=== PATIENT | male | born 1945 | race Caucasian/White ===

== ENCOUNTER 2021-01-24 15:12 | Emergency (ER) | payer MEDICARE, OTHER ==
[~2021-01-24] VITALS: Ht 180.3 cm; Wt 62.1 kg
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
--- NOTE | 2021-01-24 15:53 | NUR ---
[employer] AT BEDSIDE.
[2021-01-24] MEDS ORDERED: IBUPROFEN 600 MG TABLET ONE (16:38)
[2021-01-24] MEDS ORDERED: IBUPROFEN 600 MG TABLET PO ONE (17:00)
[2021-01-24] MEDS ORDERED: NAPR500T6 PO (17:05)
--- NOTE | 2021-01-24 17:21 | NUR ---
Patient discharged to home in stable condition. Written and verbal after care instructions given. Patient verbalizes understanding of instruction.
--- NOTE | 2021-01-24 19:50 | NUR ---
PT BROUGHT TO ER BED 13 VIA WHEELCHAIR IN STABLE CONDITION. PLACED ON MONITOR AND IN HOSPITAL GOWN. WILL CONTINUE TO MONITOR
[2021-01-24] MEDS ORDERED: IV NS 0.9% 1,000 ML BAG IV ONE (20:00)
[2021-01-24] MEDS ORDERED: HYDROMORPHONE INJ 2 MG/ML DISP.SYRIN IV ONE (20:00)
[2021-01-24] MEDS ORDERED: HYDROMORPHONE 1 MG/1 ML DISP.SYRIN ONE (20:14)
--- NOTE | 2021-01-24 20:19 | NUR ---
PT BROUGHT BY RADIOLOGY TO CT
[2021-01-24 20:28] LABS: BASOPHILS % (AUTO) 0.2 % (0.0-2.0); HEMATOCRIT 36 % (39-51); LYMPHOCYTES # (AUTO) 0.7 /CMM (0.8-4.8); LYMPHOCYTES % (AUTO) 3.6 % (20.0-44.0); MEAN CORPUSCULAR HGB CONC 33 g/dl (31.0-36.0); MEAN CORPUSCULAR VOLUME 102 fL (80-96); MONOCYTES % (AUTO) 5.5 % (2.0-12.0); NEUTROPHILS # (AUTO) 17.1 /CMM (1.8-8.9); NEUTROPHILS % (AUTO) 90.7 % (43.0-81.0); PLATELET COUNT (AUTO) 183 /CMM (150-450); RED BLOOD CELL COUNT(AUTO) 3.56 MIL/uL (4.5-6.0); WHITE BLOOD COUNT (AUTO) 18.8 K/uL (4.3-11.0)
[2021-01-24 20:38] LABS: CALCIUM, SERUM 8.5 mg/dL (8.5-10.1); CARBON DIOXIDE 24 mmol/L (21-32); CHLORIDE 105 mmol/L (98-107); CREATININE 1.8 mg/dL (0.6-1.3); GLUCOSE 249 mg/dL (74-106); POTASSIUM 4.1 mmol/L (3.5-5.1); SODIUM SERUM 141 mmol/L (136-145); UREA NITROGEN, BLOOD 23 mg/dL (7-18)
--- NOTE | 2021-01-24 20:45 | NUR ---
DR. DYSON SPEAKING WITH [facility] NP REGARDING ADMISSION
[2021-01-24 20:47] LABS: ALANINE AMINOTRANSFERASE 18 U/L (12-78); ALBUMIN 3.2 g/dL (3.4-5.0); ALKALINE PHOSPHATASE 38 U/L (46-116); ASPARTATE AMINOTRANSFERASE 18 U/L (15-37); BILIRUBIN,DIRECT 0.2 mg/dL (0.0-0.2); BILIRUBIN,TOTAL 0.9 mg/dL (0.2-1.0); LIPASE 110 U/L (73-393); TOTAL PROTEIN, SERUM 6.4 g/dL (6.4-8.2)
--- NOTE | 2021-01-24 20:48 | NUR ---
PT ACCEPTED BY HOSPITALIST [facility] NP. CALLED NURSING SUP FOR BED
--- NOTE | 2021-01-24 21:10 | NUR ---
PT'S BP 99/54, PER VERBAL MD ORDER WILL ADMIN 1L NS BOLUS X1 NOW PRIOR TO 0.5MG DILAUDID IV ADMIN
[2021-01-24] MEDS ORDERED: IV NS 0.9% 1,000 ML IV ONE (21:30)
--- NOTE | 2021-01-24 22:20 | NUR ---
H[facility]PITALIST [facility] NP SPEAKING WITH ER MD DR. SCHAEFFER. PER FAITH CLEMENTE UNABLE TO ACCEPT ADMISSION D/T PT NEEDING HIGHER LEVEL OF CARE TRANSPORT WITH TRAUMA SERVICES. BRANCH BANKER MADE AWARE.
--- NOTE | 2021-01-24 22:41 | NUR ---
REPORT GIVEN TO IRINEO ADAMS FOR TRE
--- NOTE | 2021-01-25 00:05 | NUR ---
REINFORCING STEEL MACHINE OPERATOR AT BEDSIDE FOR BLOOD DRAW
[2021-01-25 00:32] LABS: HEMATOCRIT 29 % (39-51); HEMOGLOBIN 9.9 g/dL (13.5-17.5); LYMPHOCYTES # (AUTO) 0.3 /CMM (0.8-4.8); LYMPHOCYTES % (AUTO) 1.9 % (20.0-44.0); MEAN CORPUSCULAR HGB CONC 34 g/dl (31.0-36.0); MEAN CORPUSCULAR VOLUME 101 fL (80-96); MONOCYTES # (AUTO) 0.8 /CMM (0.1-1.30); MONOCYTES % (AUTO) 6.2 % (2.0-12.0); NEUTROPHILS # (AUTO) 12.5 /CMM (1.8-8.9); NEUTROPHILS % (AUTO) 91.9 % (43.0-81.0); PLATELET COUNT (AUTO) 114 /CMM (150-450); WHITE BLOOD COUNT (AUTO) 13.6 K/uL (4.3-11.0)
--- NOTE | 2021-01-25 00:44 | NUR ---
SPOKE WITH LALO FROM [facility] FOR HIGHER LEVEL OF CARE TRANSPORT, PER LALO [facility] AT FULL CAPACITY AT THIS TIME
--- NOTE | 2021-01-25 00:50 | NUR ---
SPOKE WITH MELYSSA FROM [facility]. PER MELYSSA, AT CAPACITY AT THIS TIME BUT WILL FAX CLINICAL INFORMATION PER REQUEST
--- NOTE | 2021-01-25 01:15 | NUR ---
SPOKE WITH IRINA FROM [facility] FOR HIGHER LEVEL OF CARE TRANSFER. WILL FAX CLINICAL INFORMATION AT THIS TIME
--- NOTE | 2021-01-25 01:22 | NUR ---
ATTEMPTED TO CALL [facility] REGARDING POSSIBLE HIGHER LEVEL OF CARE TRANSFER, PENDING CALL BACK FROM CHARGE NURSE
--- NOTE | 2021-01-25 01:46 | NUR ---
SPOKE WITH JASON FROM [facility]. WILL FAX CLINICAL INFORMATION AT THIS TIME
--- NOTE | 2021-01-25 02:12 | NUR ---
DR. SCHAEFFER SPEAKING WITH [facility] , DR. MARTINEZ
--- NOTE | 2021-01-25 02:30 | NUR ---
PT ACCEPTED TO [facility] FOR HIGHER LEVEL OF CARE ACCEPTING MD: DR. ABBASI NUMBER FOR REPORT: [phone]
--- NOTE | 2021-01-25 02:32 | NUR ---
SPOKE WITH KENDRICK FROM [facility], PER KENDRICK NO ALS AMBULANCE AVAILABLE AT THIS TIME
--- NOTE | 2021-01-25 02:35 | NUR ---
SPOKE WITH DEVIN FROM [facility], NO ALS TRANSPORT AVAILABLE AT THIS TIME
--- NOTE | 2021-01-25 02:40 | NUR ---
SPOKE WITH CLAUDIA FROM [facility], NO AVAILABLE ALS TRANSPORT AT THIS TIME
--- NOTE | 2021-01-25 02:44 | NUR ---
CALLED [facility] FOR ALS TRANSPORT, UNAVAILABLE UNTIL AFTER 0700 AND WILL ALSO NEED HARD COPY OF AUTH FROM [employer]
--- NOTE | 2021-01-25 02:47 | NUR ---
SPOKE WITH WESLEY FROM [facility], NO ALS AMBULANCE AVAILABLE AT THIS TIME
--- NOTE | 2021-01-25 02:47 | NUR ---
SPOKE WITH JACKSON FROM [facility], NO AVAILABLE AMBULANCE AVAILABLE UNTIL AFTER [id number]
--- NOTE | 2021-01-25 02:48 | NUR ---
Quintin garcia in ED - 01/25/21 at 0248 by WAYLON SPOKE WITH JACKSON FROM [facility], NO AVAILABLE AMBULANCE AVAILABLE UNTIL AFTER [id number]
--- NOTE | 2021-01-25 02:49 | NUR ---
SPOKE WITH JOHNSON FROM [facility]. NO AMBULANCE AVAILABLE AT THIS TIME
[2021-01-25 02:55] VITALS: BP 88/55
--- NOTE | 2021-01-25 03:02 | NUR ---
REPORT GIVEN TO ANGIE JEFFERSON FROM [facility] FOR TRE
--- NOTE | 2021-01-25 03:07 | NUR ---
SPOKE WITH HORSE GROOMER 115 FOR IFT
--- NOTE | 2021-01-25 03:07 | NUR ---
ATTEMPTED TO CONTACT PATIENT'S EMERGENCY CONTACT REGARDING PLAN OF CARE, NO ANSWER. LEFT MESSAGE.
--- NOTE | 2021-01-25 03:23 | NUR ---
REPORT GIVEN TO IFT [facility] FOR TRANSPORTATION TRE
[2021-01-25] MEDS ORDERED: IV NS 0.9% 1,000 ML IV ONE (03:30)
--- NOTE | 2021-01-25 03:35 | NUR ---
PT TRANSFERED TO [facility]
--- NOTE | 2021-01-25 04:35 | NUR ---
SPOKE WITH PT'S FAMILY MEMBER UNA AND INFORMED OF PT'S PLAN OF CARE AND TRANSFER INFORMATION. PT'S FAMILY VERBALIZED UNDERSTANDING.
== END 2021-01-25 03:40 | disposition short-term general hospital (02) ==
LOC: ER 15:13 → UNDOADMIN 22:07 → MED 22:07 → ER 01-25 03:40
DX: S32.301A Unspecified fracture of right ilium, initial encounter for closed fracture (principal); V49.40XA Driver injured in collision with unspecified motor vehicles in traffic accident, initial encounter; Y92.414 Local residential or business street as the place of occurrence of the external cause; D53.9 Nutritional anemia, unspecified; E44.1 Mild protein-calorie malnutrition; Z68.1 Body mass index [BMI] 19.9 or less, adult; Z95.5 Presence of coronary angioplasty implant and graft; I10 Essential (primary) hypertension; D72.829 Elevated white blood cell count, unspecified; E86.0 Dehydration; Z20.822 Contact with and (suspected) exposure to COVID-19; R94.31 Abnormal electrocardiogram [ECG] [EKG]
CPT/HCPCS: 36415 ×2; 71045; 72170; 73700; 80048; 80076; 83690; 85025 ×2; 85730; 87081; 87426; 93005; 96361 ×2; 96374; 99291; 99292; J1170; J7030 ×3; C9803; G0378